=== PATIENT | male | born 1970 | race Caucasian/White ===

== ENCOUNTER 2018-04-10 08:28 | Inpatient (IN) | payer OTHER ==
[2018-04-10] MEDS ORDERED: morphine 4 MG/ML VIAL IV (09:08)
[2018-04-10 09:32] LABS: ADD MAN DIFF? NO
[2018-04-10] MEDS: SOD CHLORIDE 0.9% 1,000 ML IV ×2 (09:35→10:50)
[2018-04-10] MEDS: FAMOTIDINE 20 MG INJ IV (09:37)
[2018-04-10] MEDS: ONDANSETRON 4 MG INJ IV (09:37)
[2018-04-10 09:54] LABS: BASOPHILS % 0.1 % (0.0-2.0); HEMATOCRIT 41.4 % (42.0-52.0); HEMOGLOBIN 13.8 g/dl (14.0-18.0); LYMPHOCYTES # 1.4 10^3/ul (0.8-2.9); MEAN CORPUSCULAR HEMOGLOBIN 29.3 pg (29.0-33.0); MEAN CORPUSCULAR HGB CONC 33.3 g/dl (32.0-37.0); MEAN CORPUSCULAR VOLUME 87.9 fl (82.0-101.0); MEAN PLATELET VOLUME 11.3 fl (7.4-10.4); MONOCYTE # 1.3 10^3/ul (0.3-0.9); MONOCYTES % 8.9 % (0.0-11.0); NEUTROPHIL # 11.3 10^3/ul (1.6-7.5); NEUTROPHILS % 80.6 % (39.0-77.0); PLATELET COUNT 260 10^3/UL (140-415); RED BLOOD COUNT 4.71 10^6/ul (4.70-6.10)
[2018-04-10 09:54] LABS: WHITE BLOOD COUNT 14.1 10^3/ul (4.8-10.8)
[2018-04-10 09:57] LABS: ADD UMIC NO; UR ASCORBIC ACID NEGATIVE (NEGATIVE); UR BILIRUBIN (Dip) NEGATIVE (NEGATIVE); UR BLOOD (Dip) NEGATIVE (NEGATIVE); UR CLARITY CLEAR (CLEAR); UR COLOR YELLOW (YELLOW); UR GLUCOSE (Dip) NEGATIVE (NEGATIVE); UR KETONES (Dip) NEGATIVE (NEGATIVE); UR LEUKOCYTE ESTERASE (Dip) NEGATIVE Leu/ul (NEGATIVE); UR NITRITE (Dip) NEGATIVE (NEGATIVE); UR SPECIFIC GRAVITY (Dip) 1.021 (1.003-1.030); UR TOTAL PROTEIN (Dip) NEGATIVE (NEGATIVE); UR UROBILINOGEN (Dip) NEGATIVE (NEGATIVE)
[2018-04-10 10:01] LABS: ALANINE AMINOTRANSFERASE 62 IU/L (13-69); ALBUMIN 4.4 g/dl (3.3-4.9); ALBUMIN/GLOBULIN RATIO 1.69; ALKALINE PHOSPHATASE 64 IU/L (42-121); AMYLASE 57 U/L (11-123); ANION GAP 10 (5-13); ASPARTATE AMINO TRANSFERASE 179 IU/L (15-46); BILIRUBIN,INDIRECT 0.6 mg/dl (0-1.1); BILIRUBIN,TOTAL 0.6 mg/dl (0.2-1.3); BLOOD UREA NITROGEN 12 mg/dl (7-20); CALCIUM 9.7 mg/dl (8.4-10.2); CARBON DIOXIDE 28 mmol/L (21-31); CHLORIDE 103 mmol/L (97-110); CREATININE 0.71 mg/dl (0.61-1.24); Estimated GFR > 60 mL/min (>60); GLUCOSE 112 mg/dl (70-220); LIPASE 41 U/L (23-300); POTASSIUM 4.2 mmol/L (3.5-5.1); SODIUM 141 mmol/L (135-144)
[2018-04-10 10:09] LABS: INR 0.94; PROTIME 12.7 Sec (11.9-14.9)
[2018-04-10 10:10] LABS: PARTIAL THROMBOPLASTIN TIME 27.6 Sec (23.0-35.0)
[2018-04-10 10:26] LABS: AMPHETAMINE/METHAMPHETAMINE Negative (NEGATIVE); BARBITURATES Negative (NEGATIVE); BENZODIAZEPINES Negative (NEGATIVE); CANNABINOIDS Negative (NEGATIVE); COCAINE Negative (NEGATIVE); OPIATES Negative (NEGATIVE)
[2018-04-10] MEDS: ASPIRIN 325 MG TAB PO (10:37)
[2018-04-10] MEDS: CEFTRIAXONE 1 GM/50 ML (PMX) 50 ML IVPB (10:45)
[2018-04-10] MEDS: AZITHROMYCIN 500MG/NS (PMX) 250 ML IV (11:49)
[2018-04-10] MEDS ORDERED: NACL 0.9% 3 ML SYG IV (12:00)
[2018-04-10] MEDS ORDERED: NITROGLYCERIN (SL) 0.4 MG TAB SL (12:00)
[2018-04-10] MEDS ORDERED: MAGNESIUM HYDROXIDE 30ML CUP PO (12:00)
[2018-04-10] MEDS ORDERED: BISACODYL 10 MG SUPP PR (12:00)
[2018-04-10] MEDS ORDERED: morphine 2 MG INJ IV (12:00)
[2018-04-10] MEDS ORDERED: DOCUSATE SODIUM 100 MG CAP PO (12:00)
[2018-04-10] MEDS: ENOXAPARIN 80 MG/0.8 ML SYG SC ×2 (13:03→20:53)
[2018-04-10] MEDS: ACETAMINOPHEN 325 MG TAB PO (15:39)
[2018-04-10 15:55] LABS: CREATINE KINASE 1347 IU/L (23-200)
[2018-04-10 16:07] LABS: CK INDEX 5.6
[2018-04-10] MEDS: ATORVASTATIN 80 MG TAB PO (20:51)
[2018-04-10] MEDS: FAMOTIDINE 20 MG TAB PO (20:52)
[2018-04-10] MEDS: METOPROLOL 25 MG TAB PO (20:52)
[2018-04-10] MEDS ORDERED: ATORVASTATIN 40 MG TAB PO (21:00)
[2018-04-10 22:48] LABS: CREATINE KINASE 1060 IU/L (23-200)
[2018-04-10 23:01] LABS: CK INDEX 3.2
[2018-04-11 05:21] LABS: ADD MAN DIFF? NO
[2018-04-11 05:24] LABS: WHITE BLOOD COUNT 11.9 10^3/ul (4.8-10.8)
[2018-04-11 05:24] LABS: ABNORMAL IP MESSAGE 1; BASOPHILS % 0.2 % (0.0-2.0); HEMATOCRIT 36.4 % (42.0-52.0); HEMOGLOBIN 11.9 g/dl (14.0-18.0); LYMPHOCYTES % 16.6 % (15.0-51.0); MEAN CORPUSCULAR HEMOGLOBIN 29.2 pg (29.0-33.0); MEAN CORPUSCULAR HGB CONC 32.7 g/dl (32.0-37.0); MEAN CORPUSCULAR VOLUME 89.4 fl (82.0-101.0); MEAN PLATELET VOLUME 11.6 fl (7.4-10.4); MONOCYTE # 1.5 10^3/ul (0.3-0.9); MONOCYTES % 12.7 % (0.0-11.0); NEUTROPHIL # 8.4 10^3/ul (1.6-7.5); NEUTROPHILS % 70.2 % (39.0-77.0); PLATELET COUNT 208 10^3/UL (140-415); POSITIVE DIFF @See below; RED BLOOD COUNT 4.07 10^6/ul (4.70-6.10)
[2018-04-11 05:43] LABS: ALANINE AMINOTRANSFERASE 91 IU/L (13-69); ALBUMIN 3.6 g/dl (3.3-4.9); ALKALINE PHOSPHATASE 60 IU/L (42-121); ANION GAP 8 (5-13); ASPARTATE AMINO TRANSFERASE 130 IU/L (15-46); BLOOD UREA NITROGEN 11 mg/dl (7-20); CALCIUM 8.4 mg/dl (8.4-10.2); CARBON DIOXIDE 27 mmol/L (21-31); CHLORIDE 104 mmol/L (97-110); CHOL/HDL RATIO 4.6 RATIO; CHOLESTEROL 149 mg/dl (100-200); CREATININE 0.81 mg/dl (0.61-1.24); Estimated GFR > 60 mL/min (>60); GLUCOSE 108 mg/dl (70-220); HDL CHOLESTEROL 32 mg/dl (27-67); LDL CHOLESTEROL,CALCULATED 76 mg/dl; MAGNESIUM 1.9 mg/dl (1.7-2.5); POTASSIUM 3.9 mmol/L (3.5-5.1); SODIUM 139 mmol/L (135-144); TRIGLYCERIDES 204 mg/dl (0-149)
[2018-04-11 05:59] LABS: INR 1.09; PROTIME 14.3 Sec (11.9-14.9); PT RATIO 1.1
[2018-04-11 06:00] LABS: PARTIAL THROMBOPLASTIN TIME 38.6 Sec (23.0-35.0)
[2018-04-11] MEDS: METOPROLOL 25 MG TAB PO ×2 (08:50→20:19)
[2018-04-11] MEDS: ASPIRIN 81 MG TAB PO (08:51)
[2018-04-11] MEDS: FAMOTIDINE 20 MG TAB PO ×2 (08:51→20:18)
[2018-04-11] MEDS: CEFTRIAXONE 1 GM/50 ML (PMX) 50 ML IVPB (10:40)
[2018-04-11] MEDS: DIAZEPAM 5 MG TAB PO (11:58)
[2018-04-11] MEDS: DIPHENHYDRAMINE 50 MG CAP PO (11:58)
[2018-04-11] MEDS ORDERED: HEPARIN 1000 UNITS/ML 10 ML INJ (12:27)
[2018-04-11] MEDS ORDERED: FENTAnyl 50 MCG/ML VIAL (12:27)
[2018-04-11] MEDS ORDERED: MIDAZOLAM 1 MG/ML 2 ML INJ (12:27)
[2018-04-11] MEDS ORDERED: IODIXANOL LOCM 100 ML BTL (12:27)
[2018-04-11] MEDS ORDERED: LIDOCAINE 2% (MDV) 20 ML INJ (12:27)
[2018-04-11] MEDS ORDERED: NITROGLYCERIN (IC) 100 MCG/ML INJ (12:28)
[2018-04-11] MEDS ORDERED: VERAPAMIL 5 MG INJ (12:28)
[2018-04-11] MEDS ORDERED: TICAGRELOR 90 MG TABLET (13:52)
[2018-04-11] MEDS: EPTIFIBATIDE 100 ML IV (14:01)
[2018-04-11] MEDS ORDERED: ACETAMINOPHEN 325 MG TAB PO (14:30)
[2018-04-11] MEDS ORDERED: OXYCODONE/ACETAMINOPHEN (5/325) TAB PO (14:30)
[2018-04-11] MEDS ORDERED: ZOLPIDEM 5 MG TAB PO (14:30)
[2018-04-11] MEDS: SOD CHLORIDE 0.9% 1,000 ML IV (15:43)
[2018-04-11] MEDS: AZITHROMYCIN 500MG/NS (PMX) 250 ML IVPB (16:11)
[2018-04-11] MEDS: ONDANSETRON 4 MG INJ IV (16:20)
[2018-04-11] MEDS: ATORVASTATIN 80 MG TAB PO (20:18)
[2018-04-11] MEDS: TICAGRELOR 90 MG TABLET PO (20:22)
[2018-04-12 05:26] LABS: ADD MAN DIFF? NO; BASOPHILS % 0.2 % (0.0-2.0); EOSINOPHILS % 0.1 % (0.0-7.0); HEMATOCRIT 34.9 % (42.0-52.0); HEMOGLOBIN 11.6 g/dl (14.0-18.0); LYMPHOCYTES # 1.7 10^3/ul (0.8-2.9); LYMPHOCYTES % 15.7 % (15.0-51.0); MEAN CORPUSCULAR HEMOGLOBIN 29.7 pg (29.0-33.0); MEAN CORPUSCULAR HGB CONC 33.2 g/dl (32.0-37.0); MEAN CORPUSCULAR VOLUME 89.3 fl (82.0-101.0); MEAN PLATELET VOLUME 11.7 fl (7.4-10.4); MONOCYTE # 1.2 10^3/ul (0.3-0.9); MONOCYTES % 11.3 % (0.0-11.0); NEUTROPHIL # 7.9 10^3/ul (1.6-7.5); NEUTROPHILS % 72.2 % (39.0-77.0); PLATELET COUNT 185 10^3/UL (140-415); RED BLOOD COUNT 3.91 10^6/ul (4.70-6.10); RED CELL DISTRIBUTION WIDTH 13.1 % (11.5-14.5)
[2018-04-12 06:19] LABS: ANION GAP 9 (5-13); BLOOD UREA NITROGEN 9 mg/dl (7-20); CALCIUM 8.8 mg/dl (8.4-10.2); CARBON DIOXIDE 27 mmol/L (21-31); CHLORIDE 104 mmol/L (97-110); CK INDEX 2.3; CREATINE KINASE 478 IU/L (23-200); CREATININE 0.85 mg/dl (0.61-1.24); Estimated GFR > 60 mL/min (>60); GLUCOSE 118 mg/dl (70-220); POTASSIUM 3.9 mmol/L (3.5-5.1); SODIUM 140 mmol/L (135-144)
[2018-04-12] MEDS: FAMOTIDINE 20 MG TAB PO (09:46)
[2018-04-12] MEDS: CEFTRIAXONE 1 GM/50 ML (PMX) 50 ML IVPB (09:46)
[2018-04-12] MEDS: METOPROLOL 25 MG TAB PO (09:46)
[2018-04-12] MEDS: ASPIRIN (EC) 81 MG TAB PO (09:46)
[2018-04-12] MEDS: TICAGRELOR 90 MG TABLET PO (09:47)
[2018-04-12] MEDS: AZITHROMYCIN 500MG/NS (PMX) 250 ML IVPB (12:00)
== END 2018-04-12 14:15 | disposition home or self-care (01) | DRG 246 ==
LOC: ICU 04-11 14:44 → E/R 08:28 → 6WM 11:51
PROC: 027035Z Dilation of Coronary Artery, One Artery with Two Drug-eluting Intraluminal Devices, Percutaneous Approach (ICD-10-PCS; principal; 2018-04-11 12:13)
PROC: 4A023N7 Measurement of Cardiac Sampling and Pressure, Left Heart, Percutaneous Approach (ICD-10-PCS; 2018-04-11 12:13)
PROC: B211YZZ Fluoroscopy of Multiple Coronary Arteries using Other Contrast (ICD-10-PCS; 2018-04-11 12:13)
DX: I21.4 Non-ST elevation (NSTEMI) myocardial infarction (principal); J18.9 Pneumonia, unspecified organism; I25.10 Atherosclerotic heart disease of native coronary artery without angina pectoris; I45.10 Unspecified right bundle-branch block; I25.2 Old myocardial infarction
CPT/HCPCS: 36415; 71045; 80048; 80053; 80061; 80307; 81003; 82150; 82550; 82553; 83690; 83735; 84484; 85025; 85610; 85730; 87040; 87081; 87400; 93005; 93306; 93458; 96361; 96365; 96375; 99291-25